=== PATIENT | male | born 1965 | race Caucasian/White ===

== ENCOUNTER 2025-05-20 05:51 | Inpatient (IN) | payer OTHER, SELFPAY ==
[2025-05-20] VITALS (27 sets, daily range): BP systolic 121–192; BP diastolic 83–117
[2025-05-20 03:51] LABS: Hematocrit 46.5 % (39.0-52.0); Hemoglobin 16.6 g/dL (13.0-18.0); Mean Corp Hgb Conc. 35.7 g/dL (33.0-37.0); Mean Corpuscular Volume 91.2 fL (80.0-94.0); Nucleated Red Blood Cells % 0 % (-); Platelet Count 177 10^3/uL (130-400); Red Cell Dist. Width 12.3 % (11.5-14.5)
--- NOTE | 2025-05-20 03:56 | ED.GENMED ---
History of Present Illness
General
Chief Complaint: Chest Pain
Source: patient
Exam Limitations: none
Time Seen by Provider: 05/20/25 03:41
History of Present Illness
History of Present Illness:
Note:
CHIEF COMPLAINT(S)
Chest pain
HISTORY OF PRESENT ILLNESS
The patient is a 59-year-old male who presented with chest pain which began approximately at 7 PM. He described the pain as if someone punched him inside his chest 'really hard' and noted it was accompanied by feeling sick and an urge to vomit.
Earlier on, he attempted to alleviate the discomfort with some [id number]-[id number] antacids, including about six or seven Tums and two Mae Dry sodas, without relief. Upon noticing an increase in severity around 8:30 PM, the patient drove himself to
the emergency department, citing unbearable pain and a sense of imminent collapse. He reports a history of hypertension but denies any history of diabetes, smoking, or significant past cardiac events, although he has undergone a stress test
previously. His blood pressure measured at home was very high at 192/127 mmHg. Upon examination, the patients electrocardiogram indicated an inferior wall ST elevation, suggestive of a myocardial infarction.
PAST MEDICAL AND SURGICAL HISTORY
The patient reports a history of hypertension and has undergone a stress test in the past.
ADDITIONAL HISTORY OBTAINED FROM SOURCES OTHER THAN THE PATIENT
Not applicable.
CHRONIC MEDICAL CONDITIONS SIGNIFICANTLY AFFECTING CARE
Hypertension
SOCIAL DETERMINANTS AFFECTING HEALTH
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
MEDICATIONS
The patient believes he is on Metoprolol, a medication typically used for managing hypertension.
REVIEW OF SYSTEMS
- Cardiovascular: Chest pain described as strong and punch-like, onset at 7 PM, escalating in severity around 8:30 PM.
- Gastrointestinal: Nausea and feeling of wanting to vomit.
- Integumentary: Clammy skin was noted during the evaluation.
PHYSICAL EXAM
General: Alert, mild distress.
Skin: Warm, clammy.
Head: Normocephalic, atraumatic.
Neck: Supple, trachea midline.
Eyes, Ears, Nose, Mouth and Throat: Oral mucosa moist.
Cardiovascular: Normal peripheral perfusion, no edema. Heart is regular and without murmur
Respiratory: Respirations are non-labored.
Gastrointestinal: Abdomen nondistended.
Back: Normal range of motion, normal alignment.
Musculoskeletal: Normal ROM, normal strength.
Neurological: Alert and oriented to person, place, time, and situation, no focal neurological deficit observed.
Psychiatric: Cooperative, appropriate mood & affect.
PLAN
- Administer aspirin and initiate nitroglycerin for chest pain.
- Consult cardiology promptly; patient prepared for potential urgent catheterization.
- Start Heparin and Brilinta as per protocol for managing myocardial infarctions.
- Monitor vital signs closely, adjusting interventions based on hemodynamic stability and symptoms.
- Educate the patient on the importance of contacting emergency services in the future rather than self-transporting.
DIFFERENTIAL DIAGNOSIS
The Differential Diagnosis includes, in no particular order and is not limited to:
1. Acute Myocardial Infarction
2. Angina Pectoris
3. Gastroesophageal Reflux Disease
4. Pulmonary Embolism
5. Pericarditis
6. Costochondritis
7. Aortic Dissection
8. Anxiety or Panic Attack
9. Pneumonia
10. Esophageal Spasm
EKG
My independent EKG interpretation is:
- Time of EKG is not provided.
- Rhythm: Normal sinus rhythm.
- Heart rate: 73 beats per minute.
- [place]: Normal.
- Abnormalities observed:
- Acute ST elevation noted in leads II, III, and aVF.
- Reciprocal changes seen in lead aVL.
- Questionable extension of ST elevation into lead V6.
Disposition:
SUMMARY OF ENCOUNTER
The patient, a 59-year-old male, presented to the emergency department with acute chest pain that began earlier in the evening. An electrocardiogram revealed ST elevation in inferior leads, suggestive of a myocardial infarction. Management included
calling an urgent STEMI alert, consulting with Dr. Quiñonez, initiating a nitrate drip, and administering aspirin, heparin, and ticagrelor (Brilinta). The patients hypertension was noted to be severely uncontrolled, with blood pressures up to 160/115
mmHg, and improved slightly with treatment; however, he continues to experience chest pain. The plan involves admission to the cardiac catheterization lab for further evaluation and management.
DISPOSITION
Admit to the cardiac catheterization lab.
MANAGEMENT OF THE PATIENTS CARE WAS DISCUSSED WITH
Dr. Quiñonez and the medical lab director team.
PLAN
Administer aspirin and initiate nitroglycerin for chest pain relief. Prepare for immediate cardiac catheterization. Maintain close monitoring of blood pressure and heart rate, with emphasis on nitrate use given current heart rate contraindicating
beta-blockers.
INDEPENDENT REVIEW OF LABS AND INTERPRETATION OF TESTS
My independent EKG interpretation indicates acute ST elevation in leads II, III, and aVF, along with reciprocal changes in lead aVL, suggestive of an inferior wall myocardial infarction.
MEDICATION RECONCILIATION
The patient has been administered aspirin, heparin, and ticagrelor (Brilinta) in the emergency department.
MEDICAL DECISION MAKING
- Complexity of Data Reviewed: Chronic conditions affecting care include hypertension. Differential Diagnosis includes Acute Myocardial Infarction, Angina Pectoris, Gastroesophageal Reflux Disease, Pulmonary Embolism, Pericarditis, Costochondritis,
Aortic Dissection, Anxiety or Panic Attack, Pneumonia, and Esophageal Spasm.
- Data:
Category 2
My independent interpretation of the EKG shows acute ST elevation in leads II, III, and aVF, with reciprocal changes in lead aVL.
Category 3
Discussion of management with cardiology team including Dr. Quiñonez and medical lab director for urgent intervention.
DIAGNOSIS
1. ST-Elevation Myocardial Infarction (STEMI) - Anterolateral (ICD-10: I21.01)
2. Hypertensive emergency (ICD-10: I16.1)
Past History
Past History
ED Past Medical History: None
ED Past Surgical History: None
Social History
Tobacco: Non-smoker
Alcohol: None
Drug: None
Living: with family
Phy Exam
Physical Exam
Physical Exam:
.
Scores
Heart Score for Chest Pain Patients
STEMI patient?: Yes
Course
Orders/Labs/Results
Orders:
Orders
05/20/25 03:32
Electrocardiogram (*1) Urgent
Reason for Study: Chest Pain
EKG- Treatment ONCE
05/20/25 03:41
Complete Blood Count/With Diff Urgent
Comprehensive Metabolic Panel Urgent
Troponin I Urgent
Nitroglycerin Sublingual [Nitrostat (Sublingual)] 0.4 mg .ROUTE .STK-MED ONE
05/20/25 03:46
Ticagrelor [Brilinta] 180 mg .ROUTE .STK-MED ONE
05/20/25 03:48
ECG [Electrocardiogram (*1)] Urgent
Reason for Study: Chest Pain
Other Reason for Exam: REPEAT
EKG- Treatment ONCE
05/20/25 03:49
Nitroglycerin 100 mg/250 ml [Nitroglycerin Premix] 100 mg in 250 ml .ROUTE .STK-MED
05/20/25 03:57
PTT Urgent
Prothrombin Time Urgent
Nitroglycerin 100 mg/250 ml [Nitroglycerin Premix] 100 mg in 250 ml IV NOW
Initial dose in mcg/min, then titrate:: 5
Titrate to keep:: SBP < 160 mmHg
Titrate by mcg/min:: 5 mcg/min, may increase by 10 mcg/min if dose > 20 mcg/min
Frequency of titrations (minutes):: every 3-5 minutes
Maximum dose in mcg/min:: 200
Begin to taper infusion when:: Remained at goal for 2hrs
Taper by mcg/min:: 5 mcg/min
Frequency of taper (minutes) if patient maintains goal:: 30
Taper to off?: Yes
If infusion off & no longer maintaining goal:: Contact Provider
05/20/25 04:13
Fentanyl Citrate/Pf [Sublimaze] 100 mcg .ROUTE .STK-MED ONE
Heparin 10,000 units .ROUTE .STK-MED ONE
Midazolam HCl [Versed] 2 mg .ROUTE .STK-MED ONE
05/20/25 04:14
Heparin 1000 Units/500 ml [Heparin] 1,000 units in 500 ml .ROUTE .STK-MED
Verapamil Injectable [Isoptin/Verapamil Injection] 5 mg .ROUTE .STK-MED ONE
05/20/25 04:15
Heparin Sodium,Porcine/Ns/Pf [Heparin 2000 Units/1000 ml] 2,000 unit in 1,000 ml .ROUTE .STK-MED
Lidocaine HCl/Pf [Xylocaine-Mpf 1% Vial] 100 mg .ROUTE .STK-MED ONE
Nitroglycerin [Tridil] 1,500 mcg .ROUTE .STK-MED ONE
05/20/25 04:16
Ticagrelor [Brilinta] 180 mg .ROUTE .STK-MED ONE
05/20/25 04:17
Aspirin Chewable [Low Strength Aspirin] 324 mg .ROUTE .STK-MED ONE
Heparin 5,000 units .ROUTE .STK-MED ONE
05/20/25 04:52
Heparin 1000 Units/500 ml [Heparin] 1,000 units in 500 ml .ROUTE .STK-MED
05/20/25 05:02
Eptifibatide [Integrilin] 20 ml .ROUTE .STK-MED
Abnormal Lab Results
05/20/25 05/20/25 05/20/25
03:41 04:35 04:48
MCH 32.5 H pg
(27.0-31.0)
Absolute Monos (auto) 1.4 H 10^3/uL
(0.1-0.6)
Monocytes % 13.4 H %
(1.7-9.3)
BUN 29 H mg/dl
(9-20)
Glucose 135 H mg/dl
(70-99)
Calcium 11.0 H mg/dl
(8.4-10.2)
Troponin I 0.294 H* ng/ml
POC ACT Low Range 234 H Seconds 199 H Seconds
(116-155) (116-155)
05/20/25 03:41
05/20/25 03:41
Vital Signs
Initial and Last Documented VS:
Initial Vital Signs
Pulse Resp Pulse Ox
84 16 98
05/20/25 03:30 05/20/25 03:30 05/20/25 03:30
Last Documented Vital Signs
Pulse Resp BP Pulse Ox
64 16 138/96 98
05/20/25 04:15 05/20/25 04:15 05/20/25 04:15 05/20/25 03:57
*Pulse Oximetry
SaO2: 98
Oxygen Mode of Delivery: Room air
Patient hypoxic: no
*Foam Rubber Mixer Interpretation
Rate: normal
Interpretation: normal
Rhythm: sinus
*Critical Care Note
Total Time (30-74mins, 75-104mins- exclusive of procedures): 30 minutes
ED Attending Note
-
Portions of this chart may have been created with voice recognition software.� Occasional wrong word or��sound alike� substitutions may have occurred due to the inherent limitations of voice recognition software.
Discharge Plan
Departure
Patient Disposition: Admit
Date of Disposition: 05/20/25
Time of Disposition: 03:57
Admit to: earthmoving labourer
Presentation/result/management discussed w/ accepting MD/: Adonay
Discharge Problem:
ST elevation (STEMI) myocardial infarction
Interventions
Interventions:
*Risk Screen - Suicide Last Done: 05/20/25 03:55
*General Assessment Last Done: 05/20/25 03:50
*Neglect/Abuse Screening Last Done: 05/20/25 03:50
*ED- Fall Risk Assessment Last Done: 05/20/25 03:50
*ED COVID-19 Vaccine History Last Done: 05/20/25 03:50
*Nursing Disposition Last Done: 05/20/25 04:34
ED- Cardiac Assessment Last Done: 05/20/25 04:05
Discharge Date and Time
Discharge Date/Time: 05/20/25 04:35
[2025-05-20] MEDS: NITROGLYCERIN PREMIX 250 IV (03:59)
[2025-05-20 04:14] LABS: ALT (SGPT) 43 U/L (0-50); AST (SGOT) 38 U/L (17-59); Albumin 4.9 g/dl (3.5-5.0); Alkaline Phosphatase 69 U/L (38-126); Blood Urea Nitrogen 29 mg/dl (9-20); Calcium 11.0 mg/dl (8.4-10.2); Carbon Dioxide 25 mmol/L (22-30); Chloride 103 mmol/L (98-107); Glucose 135 mg/dl (70-99); Potassium 4.5 mmol/L (3.5-5.1); Sodium 139 mmol/L (135-145); Total Protein 7.9 g/dl (6.3-8.2); eGFR > 60.00
[2025-05-20 04:31] LABS: Troponin I 0.294 ng/ml
[2025-05-20 04:36] LABS: APTT 27.3 Sec (23.4-35.0); INR 0.95; PT 13.2 Sec (11.4-14.6)
[2025-05-20 04:43] LABS: ACT-LR - POC 234 Seconds (116-155)
[2025-05-20 04:56] LABS: ACT-LR - POC 199 Seconds (116-155)
--- NOTE | 2025-05-20 05:28 | ITS.CL.ANGIO ---
Dashboard Developer - Angioplasty
Angioplasty
Procedure Report:
LEFT HEART CATHETERIZATION
Date of Procedure: May 20, 2025
Procedures performed:
1: Coronary angiography
2: Left ventriculography
3: Percutaneous coronary intervention of the right coronary artery with placement of a 3.5 x 22 mm [place] drug-eluting stent
Primary Care Provider: Dr. Margi Lee
INDICATION: The patient is a 59-year-old man with a past medical history significant for hypertension and a family history of premature CAD who presents with an evolving inferior STEMI. [place] and thought he had some indigestion on Saturday. Since then he has had some loose bowels. Earlier tonight he developed severe chest pain and on arrival to the ER had ST elevations with ongoing pain.
ACCESS: The patient was prepped and draped in usual sterile fashion. A 6 [place] sheath was placed in the right radial artery using the Seldinger over the wire technique.
HEMODYNAMIC FINDINGS (mmHg):
LV(s/d,EDP): 131/16, 20
Ao(s/d,m): 125/73, 37
ANGIOGRAPHIC FINDINGS:
Single-plane Left Ventriculography in [place] Projection: Mild diaphragmatic hypokinesis. Overall preserved LV systolic function with a visually estimated ejection fraction of 50 to 55%. No significant mitral regurgitation.
Coronary Angiography:
Dominance: Right
Left Main: Medium caliber, widely patent.
Left Anterior Descending: The LAD is a medium caliber vessel that gives rise to 1 major high diagonal branch. There is diffuse moderate 30 to 40% disease just after the takeoff of the diagonal branch. The mid and distal LAD appear angiographically
normal with normal flow. The major diagonal branch has moderate proximal luminal irregularities with normal distal flow.
Ramus Intermedius: There is a large caliber ramus intermedius branch that bifurcates into 2 major distal branches. All vessels are widely patent with only mild luminal irregularities.
Left Circumflex: The left circumflex is a relatively small nondominant system that gives rise to 1 medium caliber obtuse marginal branch that supplies the posterolateral wall. This vessel is widely patent with normal flow.
Right Coronary: The right coronary artery has a somewhat challenging anterior takeoff. This was poorly engaged with a JR4 guiding catheter. The right coronary artery is a large-caliber dominant vessel that has diffuse moderate 30 to 40% mid
stenosis followed by a 99% preocclusive stenosis at the acute margin with thrombus noted. There is WILLIAM II distal flow into the normal-appearing posterior descending artery and posterior left ventricular branch system.
Percutaneous Coronary Intervention (PCI): In light of the above angiographic findings and the patient's clinical presentation I elected to proceed with a PCI of the RCA. The patient was given a loading dose of ticagrelor, aspirin, and
unfractionated heparin in the emergency room. Attempts to engage with poor backup support using a 6 [place] JR4 guiding catheter were unsuccessful despite escalating support with a 6 [place] Guideliner, balloon, and wire combination. A 6 [place]
hockey-stick guiding catheter was ultimately used for the intervention however support was challenging throughout the case and initial wire crossing was delayed based on this anatomic difficulty. Ultimately using a combination of the hockey-stick
guide, a 6 [place] Guideliner, a Hi-Torque floppy wire, and a 2.0 x 15 mm balloon, I was able to cross the lesion and predilate restoring WILLIAM-3 flow. Integrilin double bolus was given per protocol. Next, a 3.5 x 22 mm Adin drug-eluting stent was
deployed at 16 terrie for 30 seconds.
FINAL RESULT: 0% in-stent residual stenosis with an outstanding angiographic result and WILLIAM-3 flow in all distal vessels.
Fluoroscopy Time (min): 15.9
Radiation Dose (mGy): 799
DAP (Gy.cm2): 53
Closure device: None. A TR band was applied for hemostasis at the right wrist.
Complications: None.
ASSESSMENT:
1: Successful PCI of the right coronary artery with placement of a drug-eluting stent as described above.
2: Residual moderate nonobstructive disease in the mid RCA and LAD. I feel this can be treated medically.
3: Preserved LV systolic function with no significant mitral regurgitation.
CONCLUSIONS and RECOMMENDATIONS:
1: Routine post STEMI and post drug-eluting stent medical therapy and monitoring.
Aliyah Quiñonez M.D.
--- NOTE | 2025-05-20 06:27 | PTCARENOTE ---
Received pt from [facility]. tele placed on pt, SB-SR 50's-60's. denies any CP or SOB at this time. EKG obtained. pt oriented to room and educated on activity restrictions. pt verbalizes understanding. Admission questions completed--see work list.
Right radial site C/D/I. No bleeding or hematoma noted at this time. TR band on, SpO2 97%. Encouraged pt to call RN for assistance OOB. Call kam within reach.
[2025-05-20 07:08] LABS: ACT-LR - POC > 397 Seconds (116-155)
[2025-05-20] MEDS: NSS 1000 IV (07:30)
[2025-05-20 08:07] LABS: Troponin I 0.984 ng/ml
[2025-05-20] MEDS: LOW STRENGTH ASPIRIN 81 MG PO (09:36)
[2025-05-20] MEDS: COZAAR 25 MG PO (09:36)
[2025-05-20] MEDS: BYSTOLIC 5 MG PO (09:38)
--- NOTE | 2025-05-20 10:28 | CM ---
Addendum entered by Elaine Villarreal 05/20/25 10:44:
Reviewed co-pay with him and he is agreeable to the co-pay.
Original Note:
Reviewed chart. Met with Mr. Rod to review discharge plans. He states prior to admission he resides alone in a two story home. He states he has a full flight of steps to get to bedroom/full bathroom. He states he has a powder room pn the
first floor. He states prior to admission he was independent with ambulation and adls. He states he does not have any DME in the home. He states he has a prescription plan with [facility] and uses [facility]. Telephone call to [facility] to check
on co-pay for Brilinta and Ticagrelor 90 mg po bid. He has coverage for both and they both are a zero co-pay. Telephone call to [facility] to see if they have Brilinta or Ticagrelor in stock. They have the generic Ticagrelor in stock. Medical
work-up in progress. The discharge plan is to return home when medically stable.
--- NOTE | 2025-05-20 14:30 | W.PN.CARDCBS ---
Addendum entered and electronically signed by Pantera Hedrick MD 05/20/25 15:59:
I saw and examined the patient.
The Vehicle Modification Technician's note was reviewed and I agree with the note.
Comment: Briefly, 59-year-old man with past medical history of hypertension presenting to [place] emergency department with stuttering chest/abdominal discomfort over the past 5 days found to have inferior STEMI. Patient was taken urgently for
invasive coronary angiography he was found to have 99% stenosis of the RCA which was treated with drug-eluting stent. Also noted to have shoulder disease in the LAD and RCA territory.
Patient is resting comfortably out of bed to chair in the IVU
Chest/abdominal discomfort has resolved
No evidence of decompensated heart failure or mechanical complication of MS based on history or physical exam
Right upper extremity is neurovascularly intact
Telemetry reviewed showing sinus rhythm with brief run of AIVR also brief run of nonsustained VT
Troponin continues to rise, last 4.5, would trend to peak
Check transthoracic echocardiogram to evaluate for cardiomyopathy or valvular pathology
Continue aspirin/Brilinta, high intensity statin and beta-mathew
Discussed eventual cardiac rehab
Original Note:
Today's Communication / Plan
-
Continue post MS care
Impression / Plan
-
Primary Care Provider: Dr. Margi Lee
Primary oil expeller: None NURSERYPERSON (Will f/u with [facility] at d/c as he lives in [place])
59-year-old man with a past medical history significant for hypertension and a family history of premature CAD who presents with an evolving inferior STEMI. The patient [place] and thought he had
some indigestion on Saturday. Since then he has had some loose bowels. Earlier tonight he developed severe chest pain and on arrival to the ER had ST elevations with ongoing pain.
Imression:
Acute Inferior STEMI
post PCI RCA 3.5x22mm [place] KELLEE 05/20/25 @5am
Residual LAD and RCA disease medical tx
HTN
Arthritis of knees
Family hx premature CAD (Brother MS)
Plan:
post PCI, no further chest pain
serial troponin to peak
Echo today pending
DAPT ASA/Brilinta (cost $0), for at least 12mo, followed by ASA indefinitely
New start to nebivolol and losartan, titrate as able and monitor VS
Check lipid profile in am, continue high intensity statin
Elevated glucose - Hbg A1c pending
Admits to poor diet mostly fast food, instructed on heart healthy options
Cardiac rehab c/s
f/u [facility] 2-4 weeks at d/c
continue to monitor on tele 48hours
Progress Note - Director Of Radiology
Subjective
Date of Service: May 20, 2025
denies cp, sob
Objective
Labs:
05/20/25 03:41
05/20/25 03:41
Labs
Hgb 16.6 g/dL (13.0-18.0) 05/20/25 03:41
Hct 46.5 % (39.0-52.0) 05/20/25 03:41
Plt Count 177 10^3/uL (130-400) 05/20/25 03:41
PT 13.2 Sec (11.4-14.6) 05/20/25 03:57
INR 0.95 05/20/25 03:57
APTT 27.3 Sec (23.4-35.0) 05/20/25 03:57
Sodium 139 mmol/L (135-145) 05/20/25 03:41
Potassium 4.5 mmol/L (3.5-5.1) 05/20/25 03:41
BUN 29 mg/dl (9-20) H 05/20/25 03:41
Creatinine 1.1 mg/dL (0.7-1.3) 05/20/25 03:41
Glucose 135 mg/dl (70-99) H 05/20/25 03:41
Troponins
05/20/25 05/20/25 05/20/25
03:41 07:16 11:30
Troponin I 0.294 H* 0.984 H* D Cancelled
Vital Signs and I&O:
Vital Signs
Temp Pulse Resp BP Pulse Ox
98.3 F 66 16 128/91 97
05/20/25 11:12 05/20/25 11:45 05/20/25 11:12 05/20/25 11:45 05/20/25 11:12
Vital Signs
Temp Pulse Resp BP Pulse Ox
98.3 F 66 16 128/91 97
05/20/25 11:12 05/20/25 11:45 05/20/25 11:12 05/20/25 11:45 05/20/25 11:12
Intake & Output
05/18/25 05/19/25 05/20/25 05/21/25
06:59 06:59 06:59 06:59
Intake Total 1030 / 1030
Output Total 1175 / 1175
Balance -145 / -145
Physical Exam
Physical Exam
NAD< AOX3
S1, S2, RRR
CTAB, non labored, no wheeze
SNTND bsx4
R rad site c/d/i no HT
[2025-05-20] MEDS: BRILINTA PO (14:32)
[2025-05-20 15:48] LABS: Troponin I 4.500 ng/ml
[2025-05-20] MEDS: LIPITOR 80 MG PO (17:32)
[2025-05-20] MEDS: BRILINTA 90 MG PO (17:32)
--- NOTE | 2025-05-20 19:00 | PTCARENOTE ---
Radial band removed without problem, no sign of bleeding or hematoma. Pt reported mild heartburn prior to eating lunch and dinner which resolved. Pt visiting with family, up in a chair and walking short distances in [place] to waiting room. Troponin
level still trending up. Telemetry showed sinus rhythm with triplet and short run of NSVT. Echo done in Dept.
[2025-05-20] MEDS: TYLENOL 650 MG PO (22:10)
[2025-05-20 22:53] LABS: Troponin I 4.220 ng/ml
--- NOTE | 2025-05-21 03:28 | PTCARENOTE ---
Assumed care on pt at 1900, aaox3, cooperative with POC, denies cp or discomfort, denies SOB. SR/SB on the monitor, HR 55-70's. Pox 98% RA. R radial site CDI, free of bleeding, bruising or swelling. Call kam within reach.
[2025-05-21 04:33] VITALS: BP 150/96
[2025-05-21 05:25] LABS: Hematocrit 42.5 % (39.0-52.0); Hemoglobin 14.6 g/dL (13.0-18.0); Mean Corp Hgb Conc. 34.4 g/dL (33.0-37.0); Mean Corpuscular Volume 92.0 fL (80.0-94.0); Platelet Count 158 10^3/uL (130-400); Red Cell Dist. Width 12.5 % (11.5-14.5)
[2025-05-21 06:00] LABS: Blood Urea Nitrogen 19 mg/dl (9-20); Calcium 9.2 mg/dl (8.4-10.2); Carbon Dioxide 24 mmol/L (22-30); Chloride 111 mmol/L (98-107); Glucose 100 mg/dl (70-99); HDL Cholesterol 41 mg/dl; LDL Cholesterol, Calculated 130 mg/dl; Magnesium 2.0 mg/dl (1.6-2.3); Potassium 4.4 mmol/L (3.5-5.1); Sodium 138 mmol/L (135-145); Very Low Density Lipoprotein 42 mg/dl (0-30); eGFR > 60.00
[2025-05-21 07:09] LABS: Glycohemoglobin (HgbA1c) 5.5 % (4.0-5.6)
[2025-05-21 07:52] VITALS: BP 150/114
[2025-05-21] MEDS: BRILINTA 90 MG PO ×2 (07:55→20:56)
[2025-05-21] MEDS: LOW STRENGTH ASPIRIN 81 MG PO (07:55)
[2025-05-21] MEDS: COZAAR 25 MG PO (07:55)
[2025-05-21] MEDS: BYSTOLIC 5 MG PO (07:55)
--- NOTE | 2025-05-21 10:22 | W.PN.CARDCBS ---
Addendum entered and electronically signed by Pantera Hedrick MD 05/21/25 15:03:
I saw and examined the patient.
The Kinesiology Professor's note was reviewed and I agree with the note.
Comment: Briefly, 59-year-old man with past medical history of hypertension presenting to [place] emergency department with stuttering chest/abdominal discomfort over the past 5 days found to have inferior STEMI. Patient was taken urgently for
invasive coronary angiography he was found to have 99% stenosis of the RCA which was treated with drug-eluting stent. Also noted to have shoulder disease in the LAD and RCA territory.
Patient is resting comfortably out of bed to chair in the IVU
No further chest/abdominal discomfort
No evidence of decompensated heart failure or mechanical complication of IA based on history or physical exam
Telemetry reviewed showing normal sinus rhythm
Troponin peaked at 4.5, no need to trend further
Overall preserved LV function by echo
Did experience dyspnea last evening which is consistent with orthopnea by his description
Received IV lasix earlier today. Monitor for recurrence and treat with additional lasix dosing PRN.
Continue aspirin/Brilinta, high intensity statin, beta-mathew and ARB
Keep for monitoring overnight in IVU
Original Note:
Today's Communication / Plan
-
continue post IA care
orthopnea - IV lasix 20mg now
BP uncontrolled, switch nebivolol to carvedilol continue losartan
oob ambulate
DAPT
Impression / Plan
-
Primary Care Provider: Dr. Margi Lee
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
59-year-old man with a past medical history significant for hypertension and a family history of premature CAD who presents with an evolving inferior STEMI. [place] thought he had
some indigestion on Saturday. Since then he has had some loose bowels. Earlier tonight he developed severe chest pain and on arrival to the ER had ST elevations with ongoing pain.
Imression:
Acute Inferior STEMI
post PCI RCA 3.5x22mm Adin KELLEE 05/20/25 @5am
Residual LAD and RCA disease medical tx
HTN
Arthritis of knees
Family hx premature CAD (Brother [place])
Plan:
post PCI, no further chest pain
mild orthopnea o/n, LVEDP was 20 at cath, will give one time dose lasix 20 iv now, ? could also be side effect from Brilinta, will reassess if improved after lasix
Troponin peaked at 4.5
Echo LVEF 53%, inferior HK, mild MR
DAPT ASA/Brilinta (cost $0), for at least 12mo, followed by ASA indefinitely
BP uncontrolled, will switch nebivolol to carvedilol and continue losartan
LDL 130, TG 211, continue high intensity statin, repeat LFT's/lipids in 6-8 weeks
Elevated glucose - Hbg A1c 5.5%
Admits to poor diet mostly fast food, instructed on heart healthy options
Cardiac rehab c/s
f/u [facility] 2-4 weeks at d/c
continue to monitor on tele another 24 hours with med changes and diuresis
Progress Note - Molasses And Caramel Operator
Subjective
Date of Service: May 21, 2025
denies cp, mild orthopnea o/n
Objective
Labs:
05/21/25 04:53
05/21/25 04:53
Labs
Hgb 14.6 g/dL (13.0-18.0) 05/21/25 04:53
Hct 42.5 % (39.0-52.0) 05/21/25 04:53
Plt Count 158 10^3/uL (130-400) 05/21/25 04:53
PT 13.2 Sec (11.4-14.6) 05/20/25 03:57
INR 0.95 05/20/25 03:57
APTT 27.3 Sec (23.4-35.0) 05/20/25 03:57
Sodium 138 mmol/L (135-145) 05/21/25 04:53
Potassium 4.4 mmol/L (3.5-5.1) 05/21/25 04:53
BUN 19 mg/dl (9-20) 05/21/25 04:53
Creatinine 0.9 mg/dL (0.7-1.3) 05/21/25 04:53
Glucose 100 mg/dl (70-99) H 05/21/25 04:53
Troponins
05/20/25 05/20/25 05/20/25
03:41 07:16 11:30
Troponin I 0.294 H* 0.984 H* D Cancelled
05/20/25 05/20/25 05/20/25
15:14 17:30 22:19
Troponin I 4.500 H* D Cancelled 4.220 H*
Vital Signs and I&O:
Vital Signs
Temp Pulse Resp BP Pulse Ox
97.9 F 85 18 150/96 95
05/21/25 07:53 05/21/25 07:53 05/21/25 07:53 05/21/25 04:33 05/21/25 07:59
Vital Signs
Temp Pulse Resp BP Pulse Ox
97.9 F 85 18 150/96 95
05/21/25 07:53 05/21/25 07:53 05/21/25 07:53 05/21/25 04:33 05/21/25 07:59
Intake & Output
05/19/25 05/20/25 05/21/25 05/22/25
06:59 06:59 06:59 06:59
Intake Total 1270 / 1270
Output Total 1175 / 1175
Balance 95 / 95
Physical Exam
Physical Exam
NAD< AOX3
S1, S2, RRR
CTAB, non labored, no wheeze
SNTND Bsx4
R rad site good pulse
[2025-05-21] MEDS: COREG 3.125 MG PO (10:38)
[2025-05-21] MEDS: LASIX 20 MG IV (10:39)
[2025-05-21 13:15] VITALS: BP 126/87
--- NOTE | 2025-05-21 13:33 | CM ---
Reviewed chart. Met with Mr. Rod to review discharge plans. Telephone call to [facility] to check of Ticagrelor is ready for pick-up. His Ticagrelor is ready and he has a zero co-pay. Met with Mr. Rod to review above. He states he
is feeling well and maybe able to go home soon.Prior to admission he resides alone in a two story home. He has a full flight of steps to get to bedroom/full bathroom. He has a powder room on the first floor. Prior to admission he was independent
with ambulation and adls. He does not have any DME in the home. He has a prescription plan with [facility] and uses [facility]. Telephone call to [facility] to check on co-pay for Brilinta and Ticagrelor 90 mg po bid. He has coverage for both and
they both are a zero co-pay. Telephone call to [facility] to see if they have Brilinta or Ticagrelor in stock. They have the generic Ticagrelor in stock. Medical work-up in progress. The discharge plan is to return home when medically stable.
Initialized on 05/20/25 10:28 - END OF NOTE
--- NOTE | 2025-05-21 15:34 | W.DS.TRANS ---
DC Summary - Joint Supervisor
-
Discharge Instructions:
Discharge Diagnosis/Procedures STEMI, Angioplasty with stent to RCA
Diet Low Cholesterol
Driving Restrictions No driving for 24 hours
Blood Work Check BMP in 2 weeks
Other Services Cardiac Rehab
Instructions:
Stand-Alone Forms: DC Instructions- Cath/EP Lab
Changes to Home Medications: Yes
Discharge Medications:
DC Medications w/original date entered in [employer]
ticagrelor 90 mg tablet 90 mg PO BID #60 tabs 05/20/25
aspirin 81 mg chewable tablet 81 mg PO DAILY #1 tab 05/21/25
atorvastatin 80 mg tablet 80 mg PO QPM #30 tabs 05/21/25
carvedilol 6.25 mg tablet 6.25 mg PO BID #60 tabs 05/21/25
losartan 25 mg tablet 25 mg PO DAILY #30 tabs 05/21/25
Home Medication Changes
all new meds, stopped, meloxicam and nebivolol
Pending Results: No
[2025-05-21 15:54] VITALS: BP 136/78
--- NOTE | 2025-05-21 16:05 | PTCARENOTE ---
Assumed care of the pt @ 0700. Pt is AAOx3 SR on the monitor VSS. Rt Radial cath site c/d/i. POC discussed with pt. Sangeetha kam within reach.
[2025-05-21] MEDS: LOVENOX 40 MG SC (17:04)
[2025-05-21] MEDS: LIPITOR 80 MG PO (17:04)
[2025-05-21] MEDS: COREG 6.25 MG PO (20:56)
[2025-05-21 20:57] VITALS: BP 129/88
[2025-05-21 22:30] VITALS: BP 109/81
--- NOTE | 2025-05-21 23:55 | PTCARENOTE ---
Pt aaox3, visiting with family at change of shift, denies any complaints of pain or discomfort, no SOB. SR on tele, HR 60's. Bp stable. Pox 97% RA. Updated on POC, call kam within reach.
[2025-05-22 03:48] VITALS: BP 128/91
[2025-05-22 04:58] LABS: Blood Urea Nitrogen 21 mg/dl (9-20); Calcium 9.2 mg/dl (8.4-10.2); Carbon Dioxide 24 mmol/L (22-30); Chloride 105 mmol/L (98-107); Glucose 97 mg/dl (70-99); Magnesium 2.1 mg/dl (1.6-2.3); Potassium 4.1 mmol/L (3.5-5.1); Sodium 137 mmol/L (135-145); eGFR > 60.00
[2025-05-22 08:45] VITALS: BP 147/89
[2025-05-22] MEDS: COREG 6.25 MG PO (08:53)
[2025-05-22] MEDS: BRILINTA 90 MG PO (08:53)
[2025-05-22] MEDS: COZAAR 25 MG PO (08:54)
[2025-05-22] MEDS: LOW STRENGTH ASPIRIN 81 MG PO (08:54)
[2025-05-22 12:13] VITALS: BP 129/98
--- NOTE | 2025-05-22 12:45 | PTCARENOTE ---
~9736-1995: Handoff report received from nightshift RN. Pt AOx4, independent in room and walking halls. NSR 70s, SBP 140s, RA satting 96%. Pt denies pain at this time. 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 All needs met at this time, call kam within reach.
~[id number]: DC orders in by provider. Pt independent, Family at bedside. Tele pack and PIV removed. DC paperwork reviewed with patient and family. All questions answered, VSS, and patient d/c'd to home in stable condition.
--- NOTE | 2025-05-22 12:47 | W.PN.CARDCBS ---
Today's Communication / Plan
-
Stable for discharge
Impression / Plan
-
Primary Care Provider: Dr. Margi Lee
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
59-year-old man with a past medical history significant for hypertension and a family history of premature CAD who presents with an evolving inferior STEMI. [place] thought he had
some indigestion on Saturday. Since then he has had some loose bowels. Earlier tonight he developed severe chest pain and on arrival to the ER had ST elevations with ongoing pain.
Imression:
Acute Inferior STEMI
post PCI RCA 3.5x22mm Adin KELLEE 05/20/25 @5am
Residual LAD and RCA disease medical tx
HTN
Arthritis of knees
Family hx premature CAD (Brother [place])
Plan:
post PCI, no further chest pain
Troponin peaked at 4.5
Echo LVEF 53%, inferior HK, mild MR
Mild orthopnea resolved w/ IV lasix
Maintaining sinus rhythm on review of telemetry
No evidence of decompensated heart failure on physical exam
DAPT ASA/Brilinta (cost $0), for at least 12mo, followed by ASA indefinitely
BP uncontrolled, switch nebivolol to carvedilol and continue losartan
LDL 130, TG 211, continue high intensity statin for goal LDL at least <70
Cardiac rehab c/s
f/u [facility] 2-4 weeks at d/c
Progress Note - Brand Analyst
Subjective
Date of Service: May 22, 2025
No acute overnight events. Patient has been ambulating in the I feet you without recurrent chest discomfort. No further dyspnea/orthopnea.
Objective
Labs:
05/21/25 04:53
05/22/25 03:59
Labs
Hgb 14.6 g/dL (13.0-18.0) 05/21/25 04:53
Hct 42.5 % (39.0-52.0) 05/21/25 04:53
Plt Count 158 10^3/uL (130-400) 05/21/25 04:53
PT 13.2 Sec (11.4-14.6) 05/20/25 03:57
INR 0.95 05/20/25 03:57
APTT 27.3 Sec (23.4-35.0) 05/20/25 03:57
Sodium 137 mmol/L (135-145) 05/22/25 03:59
Potassium 4.1 mmol/L (3.5-5.1) 05/22/25 03:59
BUN 21 mg/dl (9-20) H 05/22/25 03:59
Creatinine 1.0 mg/dL (0.7-1.3) 05/22/25 03:59
Glucose 97 mg/dl (70-99) 05/22/25 03:59
Troponins
05/20/25 05/20/25 05/20/25
03:41 07:16 11:30
Troponin I 0.294 H* 0.984 H* D Cancelled
05/20/25 05/20/25 05/20/25
15:14 17:30 22:19
Troponin I 4.500 H* D Cancelled 4.220 H*
Vital Signs and I&O:
Vital Signs
Temp Pulse Resp BP Pulse Ox
98.2 F 87 18 129/98 98
05/22/25 12:14 05/22/25 12:15 05/22/25 12:14 05/22/25 12:13 05/22/25 12:14
Vital Signs
Temp Pulse Resp BP Pulse Ox
98.2 F 87 18 129/98 98
05/22/25 12:14 05/22/25 12:15 05/22/25 12:14 05/22/25 12:13 05/22/25 12:14
Intake & Output
05/20/25 05/21/25 05/22/25 05/23/25
06:59 06:59 06:59 06:59
Intake Total 1270 / 1270 480 / 480
Output Total 1175 / 1175
Balance 95 / 95 480 / 480
Physical Exam
Physical Exam
Gen: NAD, AAOx3
HEENT: NC/AT, sclera anicteric
Neck: No JVD
CV: RRR, NL s1/s2, no M/R/G
Lungs: CTAB
Abd: S/ND
Ext: No LE edema
Skin: Warm, dry
Neuro: Non-focal
== END 2025-05-22 12:45 | disposition home or self-care (01) | DRG 322 ==
LOC: IVU 05:51
PROVIDERS: Nurse Practitioner Adult Health; ADMITTING PHYSICIAN Internal Medicine Interventional Cardiology; ATTENDING PHYSICIAN Internal Medicine Interventional Cardiology; EMERGENCY PHYSICIAN Emergency Medicine; FAMILY PHYSICIAN Internal Medicine
PROC: 027034Z Dilation of Coronary Artery, One Artery with Drug-eluting Intraluminal Device, Percutaneous Approach (ICD-10-PCS; 2025-05-20)
PROC: B2111ZZ Fluoroscopy of Multiple Coronary Arteries using Low Osmolar Contrast (ICD-10-PCS; 2025-05-20)
PROC: B2151ZZ Fluoroscopy of Left Heart using Low Osmolar Contrast (ICD-10-PCS; 2025-05-20)
PROC: 4A023N7 Measurement of Cardiac Sampling and Pressure, Left Heart, Percutaneous Approach (ICD-10-PCS; 2025-05-20)
DX: I21.19 ST elevation (STEMI) myocardial infarction involving other coronary artery of inferior wall (principal); I25.10 Atherosclerotic heart disease of native coronary artery without angina pectoris; I10 Essential (primary) hypertension; M17.0 Bilateral primary osteoarthritis of knee; Z82.49 Family history of ischemic heart disease and other diseases of the circulatory system
CPT/HCPCS: 80048; 80053; 80061; 83036; 83735; 84484; 85025; 85027; 85347; 85610; 85730; 93005; 93306; 93458; 96365; 99291; C1725; C1769; C1874; C1887; C1894; C9606; J1327; Q9967